=== PATIENT | female | born 1995 | race Caucasian/White ===

== ENCOUNTER 2016-12-29 22:57 | Emergency (ER) | payer OTHER ==
[~2016-12-29] VITALS: Ht 165.1 cm; Wt 90.7 kg
[~2016-12-29 22:57] MED LIST: FLOMAX0.4 MG PO; NOHOMEMEDICATIONS; NORCO 5-325 TA1 EACH PO; ONDANSETRON HCL4 M2 PO
[2016-12-30 00:07] LABS: ABSOLUTE NEUTROPHILS 4.4 thou/uL (1.4-8.2); BASOPHILS 0.3 % (0.0-2.0); EOSINOPHILS 1.4 % (0.0-3.0); HEMATOCRIT 38.3 % (37.0-47.0); HEMOGLOBIN 13.2 gm/dL (12.0-15.0); LYMPHOCYTES 47.2 % (24.0-44.0); MCHC 34.5 g/dL (28.0-37.0); MCV 89.7 fL (80.0-100.0); MONOCYTES 9.6 % (1.0-8.0); PLATELET COUNT 277 thou/uL (150-400); POLYS 41.5 % (36.0-66.0); RBC 4.27 mil/uL (4.20-5.00); RDW 12.6 % (10.5-14.5); WBC 10.5 thou/uL (4.0-11.0)
[2016-12-30 00:11] LABS: MANUAL DIFF NO
[2016-12-30 00:13] LABS: CALCIUM 9.3 mg/dL (8.5-10.1); CREATININE 0.7 mg/dL (0.6-1.0); POTASSIUM 3.6 mmol/L (3.5-5.1)
[2016-12-30] MEDS ORDERED: COMPAZINE5 M1 PO (01:18)
[2016-12-30] MEDS ORDERED: BENADRYL25 MG PO (01:22)
[2016-12-30 01:38] VITALS: BP 126/82
== END 2016-12-30 01:40 | disposition home or self-care (01) ==
LOC: ER 22:57
PROVIDERS: Emergency Medicine
DX: R51 Headache (principal); J45.909 Unspecified asthma, uncomplicated; Z88.1 Allergy status to other antibiotic agents; Z88.6 Allergy status to analgesic agent